=== PATIENT | male | born 1930 | race Caucasian/White ===

== ENCOUNTER → 2016-07-24 | Outpatient (REF) | payer MEDICARE, OTHER ==
[~2016-07-24] MED LIST: ASCO500T21 PO; CALC600T12 PO; CYAN500L PO; DOXA8TAB73 PO; LSNP20T PO; METO-272 PO; OMEP20TA PO; OMG1KC PO; SELE100T PO; VITA400C58 PO; magnesium with zinc
== END ==
LOC: LAB 15:00
PROVIDERS: ATTEND Physician Assistant Surgical
DX: M70.22 Olecranon bursitis, left elbow (principal)
CPT/HCPCS: 87070; 87205